=== PATIENT | male | born 1955 | race African-American/Black ===

== ENCOUNTER 2017-06-19 16:30 | Emergency (ER) | payer MEDICARE, MEDICAID ==
[~2017-06-19] VITALS: Ht 180.3 cm; Wt 68.0 kg
[2017-06-19 16:47] VITALS: BP 140/83
== END 2017-06-19 20:09 | disposition left against medical advice (07) ==
LOC: ER 16:56
DX: M54.9 Dorsalgia, unspecified (principal); Z53.21 Procedure and treatment not carried out due to patient leaving prior to being seen by health care provider

== ENCOUNTER 2023-11-30 00:27 | Emergency (ER) | payer MEDICAID ==
[~2023-11-30] VITALS: Ht 175.3 cm; Wt 74.0 kg
[2023-11-30 00:54] VITALS: O2SAT 95
[2023-11-30 01:47] LABS: HEMATOCRIT. 47.7 % (42.0-52.0); HEMOGLOBIN. 16.3 g/dL (14.0-18.0); MEAN CORPUSCULAR HEMOGLOBIN 30.5 pg (28.0-32.0); MEAN CORPUSCULAR HGB CONC 34.1 g/dL (31.0-37.0); MEAN CORPUSCULAR VOLUME 89.5 fL (80.0-94.0); MEAN PLATELET VOLUME 6.9 fl (7.4-10.4); PLATELET 256 x1000/uL (130-400); RED BLOOD CELL COUNT 5.33 mill/uL (4.7-6.1); WHITE BLOOD COUNT 24.9 x1000/uL (4.5-11.0)
[2023-11-30 01:50] LABS: CHLORIDE 100 mEq/L (98-107); POTASSIUM 3.7 mEq/L (3.5-5.1); SODIUM 134 mEq/L (136-145)
[2023-11-30 01:51] LABS: CARBON DIOXIDE 25 mEq/L (21-32)
[2023-11-30 01:52] LABS: CALCIUM 9.1 mg/dL (8.7-10.4)
[2023-11-30 01:56] LABS: CREATININE 1.4 mg/dL (0.6-1.3); GLUCOSE 151 mg/dL (70-105); UREA NITROGEN BLOOD 13 mg/dL (9-23)
[2023-11-30 01:57] LABS: DIFFERENTIAL COMMENT 1
[2023-11-30 04:30] LABS: ATYPICAL LYMPHOCYTES 1; PLATELET ESTIMATE NORMAL
[2023-11-30 04:31] LABS: OVALOCYTES 1+; TEAR DROP CELLS 2+
[2023-11-30 04:32] LABS: TOXIC VACUOLATION 1+
[2023-11-30] MEDS: KETOROLAC 30MG/ML VIAL IV ONE (04:53)
[2023-11-30] MEDS: SODIUM CHLORIDE 0.9% 1,000 ML IV ONE (04:54)
[2023-11-30] MEDS: CEFTRIAXONE 2GM/50ML 50 ML IV ONE (05:20)
[2023-11-30] MEDS ORDERED: LEVO750T68 MT (05:47)
[2023-11-30 06:16] VITALS: BP 140/81; PULSE 92; RESP 18; TEMP 98.6
== END 2023-11-30 06:21 | disposition home or self-care (01) ==
LOC: ER 01:59
DX: N45.3 Epididymo-orchitis (principal); I10 Essential (primary) hypertension; F12.10 Cannabis abuse, uncomplicated
CPT/HCPCS: 99285; 96365; 93976; 96375; 80048; 83690; 85025; 36415; 76870; J0696; J1885; J7030